=== PATIENT | female | born 1985 | race Two or more races ===

== ENCOUNTER 2023-06-16 09:06 | Emergency (ER) | payer OTHER ==
[~2023-06-16] VITALS: Ht 165.1 cm; Wt 68.9 kg
[~2023-06-16 09:06] MED LIST: PREDNISONA PO; PRENATAL TABLET1 TA1 PO
[2023-06-16] MEDS ORDERED: RINVOQ ER15 MG PO (09:26)
== END 2023-06-16 10:25 | disposition home or self-care (01) ==
LOC: ER 09:06
DX: L02.91 Cutaneous abscess, unspecified (principal); L73.2 Hidradenitis suppurativa